=== PATIENT | female | born 1945 | race Caucasian/White ===

== ENCOUNTER 2022-04-08 14:02 | Observation (INO) ==
[2022-04-08 16:35] LABS: Basophils # 0.1 K/mcL (0.0-0.2); Basophils % 1.3 %; Eosinophils # 0.1 K/mcL (0.0-0.6); Eosinophils % 1.8 %; Hematocrit 38.2 % (35.3-44.9); Hemoglobin 12.9 g/dL (11.5-15.4); Immature Granulocytes % 0.3 % (0-4); Lymphocytes # 1.6 K/mcL (0.6-4.6); Lymphocytes % 25.7 %; Mean Corpuscular HGB Conc 33.8 g/dL (31.6-35.5); Mean Corpuscular Hemoglobin 28.8 pg (28.0-33.3); Mean Corpuscular Volume 85.3 fL (83.0-100.0); Mean Platelet Volume 8.9 fL (9.4-12.4); Monocytes # 0.8 K/mcL (0.0-1.3); Monocytes % 12.1 %; Neutrophils # 3.7 K/mcL (1.6-8.9); Platelet Count 384 K/mcL (140-400); Red Blood Count 4.48 M/mcL (3.82-4.97); Red Cell Distribution Width 14.8 % (11.5-14.5); Segmented Neutrophils % 58.8 %; White Blood Count 6.3 K/mcL (4.3-11.1)
[2022-04-08 16:54] LABS: BUN/Creatinine Ratio 18 (6-26); Blood Urea Nitrogen 16 mg/dL (8-23); Calcium 9.2 mg/dL (8.6-10.3); Carbon Dioxide 25 mEq/L (23-29); Chloride 97 mEq/L (98-107); Glucose 121 mg/dL (70-105); Osmolality,Calculated 270 (280-300); Sodium 129 mEq/L (136-145); eGFR For African Americans > 60 (> 60); eGFR For Non-African Americans > 60 (> 60)
[2022-04-08] MEDS ORDERED: Iopamidol - 370 500 ML MLS IVP ONE (16:57)
[2022-04-08 17:00] LABS: Troponin I 0.06 ng/mL (< 0.04)
[2022-04-08] MEDS ORDERED: Perflutren Lipid Microsphere 1.3 ML in 0.9 % Sodium Chloride 8.7 ML IVP PRN (21:52)
[2022-04-08] MEDS ORDERED: Aspirin Enteric Coated 325 MG Tablet PO STA (21:52)
[2022-04-08] MEDS ORDERED: Nitroglycerin 0.4 MG TAB.SUBL SL PRN (21:57)
[2022-04-08] MEDS ORDERED: Morphine Sulfate 2 MG/ML SYRINGE IVP PRN (21:58)
[2022-04-08] MEDS ORDERED: Naloxone 0.4 MG/ML INJ IVP PRN (22:01)
[2022-04-09] MEDS: amLODIPine 5 MG TABLET PO SCH ×2 (00:29→21:09)
[2022-04-09] MEDS: Acetaminophen 325 MG TABLET PO PRN ×2 (00:50→21:08)
[2022-04-09 02:35] LABS: Hematocrit 38.9 % (35.3-44.9); Hemoglobin 12.9 g/dL (11.5-15.4); Mean Corpuscular HGB Conc 33.2 g/dL (31.6-35.5); Mean Corpuscular Hemoglobin 28.2 pg (28.0-33.3); Mean Corpuscular Volume 85.1 fL (83.0-100.0); Mean Platelet Volume 8.7 fL (9.4-12.4); Platelet Count 379 K/mcL (140-400); Red Blood Count 4.57 M/mcL (3.82-4.97); Red Cell Distribution Width 14.8 % (11.5-14.5); White Blood Count 6.7 K/mcL (4.3-11.1)
[2022-04-09 02:41] LABS: INR 0.9; Prothrombin Time 10.5 Seconds (9.4-12.1)
[2022-04-09 02:44] LABS: Activated Partial Thrombo Time 33.9 Seconds (26.0-36.0)
[2022-04-09 02:45] LABS: Estimated Average Glucose 146 mg/dl; Hemoglobin A1C 6.7 %
[2022-04-09 02:59] LABS: Chol/HDL Ratio 2.8 (0-4.9)
[2022-04-09 03:06] LABS: BUN/Creatinine Ratio 20 (6-26); Blood Urea Nitrogen 17 mg/dL (8-23); Calcium 9.6 mg/dL (8.6-10.3); Carbon Dioxide 24 mEq/L (23-29); Chloride 99 mEq/L (98-107); Glucose 111 mg/dL (70-105); Osmolality,Calculated 270 (280-300); Potassium 3.8 mEq/L (3.5-5.1); Sodium 129 mEq/L (136-145); Troponin I 0.06 ng/mL (< 0.04); eGFR For African Americans > 60 (> 60); eGFR For Non-African Americans > 60 (> 60)
[2022-04-09 03:08] LABS: Thyroid Stimulating Hormone 4.075 mcIU/mL (0.340-5.600)
[2022-04-09] MEDS: *HR* Heparin 5,000 UNIT/ML VIAL SQ SCH ×3 (06:36→21:07)
[2022-04-09] MEDS: Aspirin Enteric Coated 81 MG Tablet PO SCH (08:56)
[2022-04-09 21:18] LABS: Bilirubin,Urine Negative (Negative); Blood,Urine Negative (Negative); Clarity,Urine Clear (Clear); Color,Urine Light-Yellow (Yellow); Glucose,Urine (UA) Normal (Normal); Ketones,Urine Negative (Negative); Leukocyte Esterase,Urine Negative (Negative); Nitrite,Urine Negative (Negative); Protein,Urine Negative (Neg-Trace); Specific Gravity,Urine 1.018 (1.010-1.025); Urobilinogen,Urine Normal (Normal)
[2022-04-10 04:05] LABS: Hematocrit 38.6 % (35.3-44.9); Mean Corpuscular HGB Conc 33.7 g/dL (31.6-35.5); Mean Corpuscular Hemoglobin 28.5 pg (28.0-33.3); Mean Corpuscular Volume 84.6 fL (83.0-100.0); Mean Platelet Volume 8.8 fL (9.4-12.4); Platelet Count 380 K/mcL (140-400); Red Blood Count 4.56 M/mcL (3.82-4.97); Red Cell Distribution Width 14.9 % (11.5-14.5); White Blood Count 5.9 K/mcL (4.3-11.1)
[2022-04-10 05:30] LABS: Troponin I 0.06 ng/mL (< 0.04)
[2022-04-10 05:36] LABS: BUN/Creatinine Ratio 21 (6-26); Blood Urea Nitrogen 16 mg/dL (8-23); Calcium 9.4 mg/dL (8.6-10.3); Carbon Dioxide 23 mEq/L (23-29); Chloride 99 mEq/L (98-107); Glucose 81 mg/dL (70-105); Osmolality,Calculated 274 (280-300); Potassium 4.1 mEq/L (3.5-5.1); Sodium 132 mEq/L (136-145); eGFR For African Americans > 60 (> 60); eGFR For Non-African Americans > 60 (> 60)
[2022-04-10] MEDS: *HR* Heparin 5,000 UNIT/ML VIAL SQ SCH (05:57)
[2022-04-10] MEDS ORDERED: LEVOTHYROXINE 125 MCG PO SCH (09:00)
[2022-04-10] MEDS ORDERED: AMLODIPINE BESYLATE 5 MG PO SCH (09:00)
[2022-04-10 10:33] VITALS: TEMP 98.1
[2022-04-10] MEDS: Aspirin Enteric Coated 81 MG Tablet PO SCH (10:58)
[2022-04-10] MEDS ORDERED: Iopamidol - 370 500 ML MLS IVP ONE (11:49)
[2022-04-10] MEDS ORDERED: Nitroglycerin 0.4 MG TAB.SUBL SL PRN (13:15)
[2022-04-10] MEDS ORDERED: *HR* Metoprolol 5 MG/5 ML VIAL IVP PRN (13:15)
[2022-04-10 15:07] VITALS: BP 136/92; PULSE 54; O2SAT 97
== END 2022-04-10 16:52 | disposition home or self-care (01) ==
LOC: EMEROOARM 14:02 → 2ANU 14:02 → SUATTDRO 20:32 → 2ANU 21:52
PROVIDERS: ADMIT Internal Medicine; ATTEND Internal Medicine